=== PATIENT | male | born 1965 | race African-American/Black ===

== ENCOUNTER 2023-01-03 22:34 | Emergency (ER) | payer OTHER ==
[2023-01-03 22:44] VITALS: BP 125/72; PULSE 75; RESP 16; TEMP 98.5; BMI 25.8
[2023-01-03] MEDS ORDERED: KETOROLAC TROMETHAMINE 30 MG/1 ML VIAL ONE (23:57)
[2023-01-03] MEDS ORDERED: KETOROLAC TROMETHAMINE 30 MG/1 ML VIAL IM ONE (23:59)
== END 2023-01-04 00:59 | disposition home or self-care (01) ==
LOC: JERFT 22:34
PROC: 3E0233Z Introduction of Anti-inflammatory into Muscle, Percutaneous Approach (ICD-10-PCS; principal; 2023-01-04)
DX: M54.50 Low back pain, unspecified (principal); M25.531 Pain in right wrist; V49.40XA Driver injured in collision with unspecified motor vehicles in traffic accident, initial encounter; Y93.I9 Activity, other involving external motion
CPT/HCPCS: 72100-TC-FY; 73110-TC-RT-FY; 73130-TC-RT-FY; 99284-25